=== PATIENT | female | born 1955 | race Caucasian/White ===

== ENCOUNTER → 2016-09-19 | Day surgery (SDC) | payer BC ==
[~2016-09-19] MED LIST: ALEN35TA6 PO; GABA-586 PO; HYDROmorphone 2 MG/ML VIAL IV PRN; IV RINGERS,LACTATED 1000ML 1,000 ML IV SCH; LIDOCAINE 1% 1 ML SYRINGE. ID PRN; MORPHINE SULFATE 2 MG/ML DISP.SYRIN. IV PRN; ONDANSETRON PF 4 MG/2 ML VIAL. IV PRN; PROCHLORPERAZINE 10 MG/2 ML VIAL. IV PRN; PROPOFOL 20 ML IV ONE; SIMV40TA3 PO; SOLI10TA2 PO; SULF1TAB23 PO; fentaNYL PF VIAL 100 MCG/2 ML VIAL IV PRN
[2016-09-19 07:47] VITALS: BP 140/73
--- NOTE | 2016-09-20 16:04 | PATHOLOGY ---
PATHOLOGY REPORT * * * * * * * * FINAL DIAGNOSIS: Squamous mucosa "distal esophageal biopsy": - Acute esophageal ulcer with necrotic acute inflammatory exudate. The specimen reveals marked crushing artifact. - There is no goblet cell metaplasia or dysplasia, or malignancy. - Focally, there is moderate increase in intraepithelial eosinophils consistent with eosinophilic esophagitis. - GMS stain for fungus will be done and additional report will follow. ([facility]; 09/20/2016) REPORT ELECTRONICALLY SIGNED BY: Binu Cruz M.D. DATE/TIME: 09/20/2016 16:03 * * * * * * * * GROSS PATHOLOGY: Received in formalin labeled "Elena Braswell, distal esophagus biopsy, r/o Mar's," are multiple segments of strong soft tissue ranging from less than 0.1 to 0.3 cm in maximum dimension. The specimen is submitted entirely in cassette A1. ([facility]; 09/19/16) INITIAL CPT CODE(S): A; 48166, 49373 Professional services performed by [facility] [place] [address] Technical services performed by [facility] at [address] [place] [address]. SPECIMEN(S) RECEIVED: A.Distal esophagus biopsy, r/o Mar's CLINICAL HISTORY: Dysphagia, r/o Mar's PATIENT: ELENA BRASWELL /AGE: 1102/07/1955 (Age: 61) PATIENT #: [id number] ALT CASE #: SPECIMEN COLLECTION DATE: 09/19/2016 SPECIMEN RECEIVED DATE: 09/19/2016 [facility] - [address] [place] [address] - PHONE: [phone] * * * END OF REPORT * * *
== END | disposition home or self-care (01) ==
LOC: ENDOS 06:06
PROVIDERS: ATTEND Internal Medicine Gastroenterology
DX: K20.9 Esophagitis, unspecified (principal); K92.89 Other specified diseases of the digestive system; E78.00 Pure hypercholesterolemia, unspecified; M19.90 Unspecified osteoarthritis, unspecified site; Z83.3 Family history of diabetes mellitus; Z90.710 Acquired absence of both cervix and uterus
CPT/HCPCS: 43239; 43450; 88305; 88312; J2704